=== PATIENT | female | born 1980 ===

== ENCOUNTER 2023-08-18 13:03 | Inpatient (IN) ==
[2023-08-19] MEDS ORDERED: Al Hydrox/Mg Hydrox/Simet LIQ 30 ML UDC PO PRN (07:47)
[2023-08-19] MEDS: Vitamin THERAPEUTIC TAB PO SCH (08:17)
[2023-08-26] MEDS: Paliperidone SUSTENNA 234 MG/1.5 ML IM ONE (11:57)
[2023-08-29 08:29] LABS: HDL Cholesterol 43.1 mg/dL
[2023-08-29] MEDS: Paliperidone SUSTENNA 156 MG/1 ML IM ONE (10:28)
[2023-08-29] MEDS ORDERED: Cyanocobalamin INJ 1,000 MCG/ML VIAL 1 ML VIAL IM ONE (13:32)
[2023-09-01 10:41] VITALS: BP 136/75
== END 2023-09-02 13:39 | disposition home or self-care (01) | DRG 885 ==
LOC: BSU 16:24
PROVIDERS: ADMIT Psychiatry & Neurology Psychiatry; ATTEND Psychiatry & Neurology Psychiatry